=== PATIENT | male | born 1990 | race African-American/Black ===

== ENCOUNTER 2024-05-02 15:16 | Inpatient (IN) ==
[2024-05-02 17:32] LABS: Albumin Globulin Ratio 1.2 (0.9-2); Albumin Level 4.5 gm/dl (3.4-5.0); BUN Creatinine Ratio 10.7 (10-20); Bilirubin,Total 2.9 mg/dl (0.2-1.0); Calcium 9.7 mg/dl (8.6-10.3); Globulin 3.7 gm/dl (2.5-4.0); Potassium 3.9 mmol/L (3.5-5.1); Total Protein 8.2 gm/dl (6.0-8.3)
[2024-05-02 17:44] LABS: Basophils # (auto) 0.03 K/uL (0.00-0.20); Basophils % (auto) 0.2 %; Eosinophils # (auto) 0.07 K/uL (0.00-0.50); Eosinophils % (auto) 0.5 %; Hematocrit (blood only) 40.7 % (42.0-52.0); Hemoglobin 13.3 g/dl (14.0-18.0); Immature Granulocytes # (auto) 0.03 K/uL (0.01-0.20); Immature Granulocytes % (auto) 0.2 %; Lymphocytes # (auto) 2.52 K/uL (1.20-3.40); Lymphocytes % (auto) 17.7 %; Mean Corpuscular Hgb Conc 32.7 g/dL (32.0-36.0); Mean Corpuscular Volume 70.4 fL (80.0-100.0); Mean Platelet Volume 10.2 fL (9.4-12.4); Monocytes # (auto) 1.16 K/uL (0.11-0.59); Monocytes % (auto) 8.2 %; Neutrophils # (auto) 10.42 K/uL (1.40-6.50); Neutrophils % (auto) 73.2 %; Platelet Count 290 K/uL (130-400); RDW Coefficient of Variation 14.4 % (11.5-14.5); RDW Standard Deviation 35.5 fL (36.4-46.3); Red Blood Count 5.78 M/uL (4.70-6.10); White Blood Count 14.23 K/ul (4.8-10.8)
[2024-05-02] MEDS: SODIUM CHLORIDE 0.9% 1,000 ML IV ONE (19:17)
[2024-05-02] MEDS: MoRPHine SULFATE 4 MG/ML 1 ML CARP\\VIAL IV STA ×2 (19:17→20:09)
[2024-05-02] MEDS: ONDANSETRON INJ 2 MG/ML 2 ML VIAL IV STA (19:18)
--- NOTE | 2024-05-02 19:24 | Emergency Department Note ---
Impression & Plan Acute cholecystitis, Right sided abdominal pain ED Provider Note NAME: RADHA [id number] KIARA AGE: 33 SEX: M : 1990 ARRIVES VIA: Walk-In INFORMANT: Patient, ED PROVIDER(S): Tyrone Johnson DO CHIEF COMPLAINT: Abdominal pain HPI: The patient is a 33-year-old male who presented to the emergency department from the custodial for abdominal pain. I did see the patient yesterday for right side abdominal pain. He was sent from the custodial for the possibility of appendicitis. He did have lower abdominal tenderness on physical exam. CT did not show any acute process however his white blood cell count was elevated. He was told to come back to the emergency department if he develop worsening symptoms and today he started having vomiting as well as an elevated temperature. The patient denies having any chest pain or cough. He denies having any lower extremity swelling. ROS: See above HPI for pertinent positives & negatives. A total of 10 systems reviewed and were otherwise negative. PAST MEDICAL HISTORY: See Below PAST SURGICAL HISTORY: See Below FAMILY HISTORY: See Below SOCIAL HISTORY: See Below HOME MEDICATIONS: See Below ALLERGIES: See Below VITALS: See Below PHYSICAL EXAMINATION: GENERAL: Patient is awake alert in no acute distress patient is resting comfortably and showing no signs of anxiety EYES: The conjunctivae are clear. The pupils are round and reactive. EARS, NOSE, MOUTH AND THROAT: The nose is without any evidence of any deformity. Mucous membranes are moist. Tongue is midline. NECK: The neck is nontender and supple. RESPIRATORY: Normal respiratory effort is noted there is no evidence of wheezing rhonchi or rales CARDIOVASCULAR: Regular rate and rhythm noted there no murmurs rubs or gallops normal S1 normal S2. GASTROINTESTINAL: The abdomen is soft and mildly distended. There is right upper quadrant tenderness to palpation which is moderate. There is no guarding rigidity. MUSCULOSKELETAL/EXTREMITIES: There is no evidence of gross deformity full range of motion is noted in the hips and shoulders. SKIN: There is no obvious evidence of any rash. There are no petechiae, pallor or cyanosis noted. NEUROLOGIC: Patient is awake alert and oriented x3 MEDICAL DECISION MAKING: The patient is a 33 old male who presented to the emergency department for an evaluation of right sided abdominal pain. The patient was seen in our facility yesterday by myself. At that time the patient was felt to have an exam that could be consistent with appendicitis. CT did not show signs of appendicitis. His laboratory studies were not reflective of biliary pathology but he did have a slight elevation in his bilirubin. The patient developed fever today and was sent back to the emergency department for further evaluation. On my exam today he does appear to have more of a right upper quadrant abdominal pain rather than right lower abdominal pain. He was treated with IV fluids IV pain medication and IV antibiotics in the emergency department. He was reevaluated multiple times. On reevaluation he was somewhat improved. I discussed his condition with the on-call general surgical group. They recommended that I talk the case over with medicine as well. Triage Nursing notes reviewed. Prior medical records reviewed Vital Signs: reviewed and remarkable for no significant abnormalities Differential diagnosis: Etiologies such as appendicitis, diverticulitis, obstruction, inflammatory bowel disease, renal colic, PUD, biliary pathology, pancreatitis, mesenteric ischemia, aortic pathology, infections, genitourinary, UTI, perforated viscus, as well as others were entertained. ER treatment provided: See below Diagnostics interpreted by me: ECG: none Cardiac Monitoring: An order was placed for continuous cardiac monitoring. The monitor shows a rate of 85 bpm with sinus rhythm. Laboratory studies: As stated above and show below. Imaging studies: See below. Radiographic imaging was reviewed by myself Consultation(s): I discussed this case with Sam who is on for the surgical group. He recommends medical admission and they will follow along surgically. Dr. Miles was notified about the case. Past Med/Surg History Problem List (Updated 05/03/24 @ 01:17 by Tyrone Johnson DO) Acute cholecystitis (Acute) Right sided abdominal pain (Acute) Social History Smoking Status: Former smoker Feels Safe at Home: Yes Allergies Allergies Allergy/AdvReac Type Severity Reaction Status Date / Time No Known Allergies Allergy Unverified 05/01/24 21:15 Results & Data (ED) Vital Signs Vital Signs - 24 hr 05/02/24 15:47 05/02/24 19:00 05/02/24 19:01 Temperature 36.8 C Temperature Source Temporal Artery Scan Pulse Rate 111 H 111 H Pulse Rate [Finger] 111 H Pulse Rate from SpO2 Sensor Respiratory Rate 12 20 20 Respiratory Effort / Characteristics Non-Labored Non-Labored Spontaneous Respiratory Depth Normal Normal Respiratory Pattern Regular Blood Pressure 140/89 Blood Pressure [Left Arm] 125/90 Blood Pressure Mean 106 Blood Pressure Mean [Left Arm] 101 Pulse Oximetry 95 98 98 Oxygen Delivery Method Room Air Room Air Room Air Sepsis Recent Fever Within 48 Hours No Sepsis New/Unexplained Change in Mental Status N/A Sepsis Action Taken by Nursing No Action Required 05/02/24 19:10 05/02/24 19:15 05/02/24 19:21 Temperature Temperature Source Pulse Rate 100 H 103 H 106 H Pulse Rate [Finger] Pulse Rate from SpO2 Sensor 104 H 105 H Respiratory Rate 25 H 15 Respiratory Effort / Characteristics Respiratory Depth Respiratory Pattern Blood Pressure Blood Pressure [Left Arm] Blood Pressure Mean Blood Pressure Mean [Left Arm] Pulse Oximetry 96 97 Oxygen Delivery Method Sepsis Recent Fever Within 48 Hours Sepsis New/Unexplained Change in Mental Status Sepsis Action Taken by Nursing 05/02/24 19:30 05/02/24 19:30 05/02/24 19:30 Temperature Temperature Source Pulse Rate 98 H Pulse Rate [Finger] Pulse Rate from SpO2 Sensor 99 H Respiratory Rate 19 Respiratory Effort / Characteristics Respiratory Depth Respiratory Pattern Blood Pressure 126/93 126/93 Blood Pressure [Left Arm] Blood Pressure Mean 106 106 Blood Pressure Mean [Left Arm] Pulse Oximetry 96 Oxygen Delivery Method Sepsis Recent Fever Within 48 Hours Sepsis New/Unexplained Change in Mental Status Sepsis Action Taken by Nursing 05/02/24 19:42 05/02/24 20:30 05/02/24 20:33 Temperature Temperature Source Pulse Rate 82 85 Pulse Rate [Finger] Pulse Rate from SpO2 Sensor 82 82 Respiratory Rate 24 20 Respiratory Effort / Characteristics Respiratory Depth Respiratory Pattern Blood Pressure 161/105 H Blood Pressure [Left Arm] Blood Pressure Mean 124 Blood Pressure Mean [Left Arm] Pulse Oximetry 97 97 Oxygen Delivery Method Sepsis Recent Fever Within 48 Hours Sepsis New/Unexplained Change in Mental Status Sepsis Action Taken by Nursing 05/02/24 20:57 05/02/24 21:00 05/02/24 21:01 Temperature Temperature Source Pulse Rate 81 Pulse Rate [Finger] 77 Pulse Rate from SpO2 Sensor 81 Respiratory Rate 27 H 20 Respiratory Effort / Characteristics Respiratory Depth Respiratory Pattern Blood Pressure 158/111 H Blood Pressure [Left Arm] 154/109 H Blood Pressure Mean 128 Blood Pressure Mean [Left Arm] 124 Pulse Oximetry 97 96 Oxygen Delivery Method Sepsis Recent Fever Within 48 Hours Sepsis New/Unexplained Change in Mental Status Sepsis Action Taken by Nursing 05/02/24 21:03 05/02/24 21:27 05/02/24 21:31 Temperature Temperature Source Pulse Rate 80 75 Pulse Rate [Finger] Pulse Rate from SpO2 Sensor 81 76 Respiratory Rate 21 22 Respiratory Effort / Characteristics Respiratory Depth Respiratory Pattern Blood Pressure 154/109 H Blood Pressure [Left Arm] Blood Pressure Mean 117 Blood Pressure Mean [Left Arm] Pulse Oximetry 97 97 Oxygen Delivery Method Sepsis Recent Fever Within 48 Hours Sepsis New/Unexplained Change in Mental Status Sepsis Action Taken by Nursing 05/02/24 21:39 05/02/24 22:00 05/02/24 22:01 Temperature Temperature Source Pulse Rate 92 H 82 Pulse Rate [Finger] Pulse Rate from SpO2 Sensor 91 H 81 Respiratory Rate 21 15 Respiratory Effort / Characteristics Respiratory Depth Respiratory Pattern Blood Pressure 145/104 H Blood Pressure [Left Arm] Blood Pressure Mean 112 Blood Pressure Mean [Left Arm] Pulse Oximetry 95 96 Oxygen Delivery Method Sepsis Recent Fever Within 48 Hours Sepsis New/Unexplained Change in Mental Status Sepsis Action Taken by Nursing 05/02/24 22:15 05/02/24 22:21 05/02/24 22:30 Temperature Temperature Source Pulse Rate 92 H 92 H 87 Pulse Rate [Finger] Pulse Rate from SpO2 Sensor 90 91 H 86 Respiratory Rate 23 24 23 Respiratory Effort / Characteristics Respiratory Depth Respiratory Pattern Blood Pressure Blood Pressure [Left Arm] Blood Pressure Mean Blood Pressure Mean [Left Arm] Pulse Oximetry 96 95 96 Oxygen Delivery Method Sepsis Recent Fever Within 48 Hours Sepsis New/Unexplained Change in Mental Status Sepsis Action Taken by Nursing 05/02/24 22:30 05/02/24 22:51 05/02/24 23:00 Temperature Temperature Source Pulse Rate 81 Pulse Rate [Finger] Pulse Rate from SpO2 Sensor 82 Respiratory Rate 23 Respiratory Effort / Characteristics Respiratory Depth Respiratory Pattern Blood Pressure 156/106 H 170/86 H Blood Pressure [Left Arm] Blood Pressure Mean 133 114 Blood Pressure Mean [Left Arm] Pulse Oximetry 96 Oxygen Delivery Method Sepsis Recent Fever Within 48 Hours Sepsis New/Unexplained Change in Mental Status Sepsis Action Taken by Nursing 05/02/24 23:10 05/02/24 23:42 Temperature Temperature Source Pulse Rate 82 Pulse Rate [Finger] 81 Pulse Rate from SpO2 Sensor Respiratory Rate 20 Respiratory Effort / Characteristics Non-Labored Spontaneous Respiratory Depth Normal Respiratory Pattern Regular Blood Pressure Blood Pressure [Left Arm] 158/84 H Blood Pressure Mean Blood Pressure Mean [Left Arm] 108 Pulse Oximetry 96 Oxygen Delivery Method Room Air Sepsis Recent Fever Within 48 Hours Sepsis New/Unexplained Change in Mental Status Sepsis Action Taken by [facility] Medications Current Medication List: was personally reviewed by me Laboratory Data Attestation: I reviewed the patient's lab results. 05/02/24 16:55 05/02/24 16:55 Lab Results 05/02/24 05/02/24 05/02/24 Range/Units 00:18 16:55 18:37 WBC 14.23 H (4.8-10.8) K/ul RBC 5.78 (4.70-6.10) M/uL Hgb 13.3 L (14.0-18.0) g/dl Hct 40.7 L (42.0-52.0) % MCV 70.4 L (80.0-100.0) fL MCH 23.0 L (25.0-34.0) pg MCHC 32.7 (32.0-36.0) g/dL RDW Std Deviation 35.5 L (36.4-46.3) fL RDW Coeff of Lita 14.4 (11.5-14.5) % Plt Count 290 (130-400) K/uL MPV 10.2 (9.4-12.4) fL Immature Gran % (Auto) 0.2 % Neut % (Auto) 73.2 % Lymph % (Auto) 17.7 % [place] % (Auto) 8.2 % Eos % (Auto) 0.5 % Baso % (Auto) 0.2 % Neut # (Auto) 10.42 H (1.40-6.50) K/uL Lymph # (Auto) 2.52 (1.20-3.40) K/uL [place] # (Auto) 1.16 H (0.11-0.59) K/uL Eos # (Auto) 0.07 (0.00-0.50) K/uL Baso # (Auto) 0.03 (0.00-0.20) K/uL Immature Gran # (Auto) 0.03 (0.01-0.20) K/uL Sodium 137 (136-145) mmol/L Potassium 3.9 (3.5-5.1) mmol/L Chloride 102 (98-107) mmol/L Carbon Dioxide 26 (21-32) mmol/L Anion Gap 9 (3-11) BUN 12 (6-23) mg/dl Creatinine 1.12 (0.6-1.4) mg/dl Est Cr Clr Drug Dosing 141.0 ml/min eGFR 88.41 BUN/Creatinine Ratio 10.7 (10-20) Glucose 94 (70-99(Fasting)) mg/dl Calcium 9.7 (8.6-10.3) mg/dl Total Bilirubin 2.9 H D (0.2-1.0) mg/dl Direct Bilirubin 0.5 H (0-0.2) mg/dl AST 24 (13-39) U/L ALT 35 (7-52) U/L Alkaline Phosphatase 78 (34-104) U/L Total Protein 8.2 (6.0-8.3) gm/dl Albumin 4.5 (3.4-5.0) gm/dl Globulin 3.7 (2.5-4.0) gm/dl Albumin/Globulin Ratio 1.2 (0.9-2) Lipase 11 (11-82) U/L Urine Color [place] Urine Appearance Clear (Clear) Urine pH 6.0 (4.5-7.5) Ur Specific [place] 1.037 H (1.000-1.030) Urine Protein 1+ H (Negative) Urine Glucose (UA) Negative (Negative) Urine Ketones 1+ H (Negative) Urine Blood Negative (Negative) Urine Nitrite Positive A (Negative) Urine Bilirubin 2+ H (Negative) Urine Urobilinogen Positive H (Negative) Ur Leukocyte Esterase Trace H (Negative) Urine WBC (Auto) 0-5 (0-5) /hpf Urine RBC (Auto) 6-10 H (0-2) /hpf U Hyaline Cast (Auto) 0-2 (0-2) /lpf U Epithel Cells (Auto) 0-2 (0-2) /hpf Urine Bacteria (Auto) 2+ H (None Seen) Urine Mucus Present A (None Prsent) Hep Bs Antigen Negative (Negative) Administered Medications Lactated Ringer's (Lr) 1,000 mls @ 80 mls/hr IV .[id number] BRAD Stop: 05/03/24 12:14 Last Admin: 05/03/24 00:14 Dose: 80 mls/hr Documented By: EMB Morphine Sulfate (Morphine Sulfate 4 Mg/Ml 1 Ml Carp\Vial) 4 mg IV Q3H PRN PRN Reason: Severe Pain (Scale 7, 8, 9,10) Stop: 05/17/24 00:02 Last Admin: 05/03/24 00:55 Dose: 4 mg Documented By: LORETTA Ondansetron HCl (Ondansetron Inj 2 Mg/Ml 2 Ml Vial) 4 mg IV Q6H PRN PRN Reason: Nausea Stop: 06/02/24 00:02 Last Admin: 05/03/24 00:53 Dose: 4 mg Documented By: LORETTA Discontinued Medications Sodium Chloride (Nss) 1,000 mls @ 999 mls/hr IV .[id number] ONE Stop: 05/02/24 20:12 Last Infusion: 05/02/24 20:12 Dose: Infused Documented By: Admin: 05/02/24 19:17 Dose: 999 mls/hr Documented By: DORITA Piperacillin Sod/Tazobactam Sod (Zosyn) 4.5 gm in 100 mls @ 200 mls/hr IV NOW ONE; Protocol Stop: 05/02/24 19:50 Last Infusion: 05/02/24 20:12 Dose: Infused Documented By: Admin: 05/02/24 19:41 Dose: 200 mls/hr Documented By: DORITA Morphine Sulfate (Morphine Sulfate 4 Mg/Ml 1 Ml Carp\Vial) 4 mg IV NOW STA Stop: 05/02/24 19:13 Last Admin: 05/02/24 19:17 Dose: 4 mg Documented By: DORITA Morphine Sulfate (Morphine Sulfate 4 Mg/Ml 1 Ml Carp\Vial) 4 mg IV NOW STA Stop: 05/02/24 20:04 Last Admin: 05/02/24 20:09 Dose: 4 mg [place] [facility] [facility] [place]danset[place] HCl (Ondansetron Inj 2 Mg/Ml 2 Ml Vial) 4 mg IV NOW STA Stop: 05/02/24 19:13 Last Admin: 05/02/24 19:18 Dose: 4 mg Documented By: DORITA Imaging Data Attestation: I personally reviewed and interpreted this imaging study as follows: My Impression: Chest x-ray was obtained in the emergency department. My interpretation is no free air or definite infiltrate, final report below. Radiologist's Impression: Chest X-Ray 05/02/24 19:12 Exam(s): XR CXR 1 VIEW EXAM: XR Chest, 1 View CLINICAL HISTORY: Reason for exam: fever. TECHNIQUE: Frontal view of the chest. COMPARISON: No relevant prior studies available. FINDINGS: Lungs: Soft tissue artifact over the lung bases from large body habitus. No acute infiltrate or consolidation is seen. Pleural space: Unremarkable. No pneumothorax. Heart: Unremarkable. No cardiomegaly. Mediastinum: Unremarkable. Normal mediastinal contour. Bones/joints: Unremarkable. No acute fracture. Upper abdomen: There is no pneumoperitoneum under the diaphragm. IMPRESSION: No acute findings in the chest. Electronically signed by: Fly Pablo MD 05/02/24 21:21 PM Gallbladder Ultrasound 05/02/24 19:12 Exam(s): US GALLBLADDER EXAM: US Abdomen Limited, Gallbladder CLINICAL HISTORY: Reason for exam: Right upper quadrant pain. TECHNIQUE: Real-time ultrasound of the right upper quadrant with image documentation. COMPARISON: CT scan from May 01, 2024 FINDINGS: Liver: The liver measures 16.2 cm with possible mild fatty infiltration. No focal liver lesion is seen. Gallbladder: The gallbladder is mildly enlarged measuring 10.7 cm long axis. No gallstones are identified. There is mild wall thickening measuring 3.4 mm. No surrounding fluid. Common bile duct: The common bile duct is nondilated measuring 5 mm. Pancreas: The pancreas is most obscured by bowel gas. Right kidney: Unremarkable. No stones. No hydronephrosis. The right kidney measures 11.1 cm. IMPRESSION: The gallbladder is mildly enlarged measuring 10.7 cm long axis. No gallstones are identified. There is mild wall thickening measuring 3.4 mm. No surrounding fluid. Sonographic [place] sign is positive. Electronically signed by: Fly Pablo MD 05/02/24 22:53 PM Discharge Plan Visit Data Chief Complaint: Hematuria Stated Complaint: HEMATURIA, DIARRHEA ED Provider: Tyrone Johnson Discharge Problem: Acute cholecystitis, Right sided abdominal pain Patient Disposition: Being Evaluated by Hospitalist Condition: Good Discharge Instructions Interventions: ED Discharge Assessment Last Done: 05/03/24 00:03
[2024-05-02 19:27] LABS: Appearance Urine Clear (Clear); Bilirubin Urine 2+ (Negative); Blood Urine Negative (Negative); Color Urine Orange; Epithelial Cell Urine Auto 0-2 /hpf (0-2); Glucose Urine UA Negative (Negative); Ketones Urine 1+ (Negative); Leukocyte Esterase Urine Trace (Negative); Nitrite Urine Positive (Negative); Protein Urine 1+ (Negative); Specific Gravity Urine 1.037 (1.000-1.030); Urobilinogen Urine Positive (Negative); WBC Urine Automated 0-5 /hpf (0-5)
[2024-05-02] MEDS: PIPERACILLIN/TAZOBACTAM 4.5 GM/100 ML BAG IV ONE (19:41)
[2024-05-02 19:47] LABS: Bacteria Urine Automated 2+ (None Seen); Mucus Urine Present (None Prsent)
[2024-05-02 19:49] LABS: Cast Urine Automated 0-2 /lpf (0-2)
--- NOTE | 2024-05-02 21:22 | XRay Report ---
Exam(s): XR CXR 1 VIEW EXAM: XR Chest, 1 View CLINICAL HISTORY: Reason for exam: fever. TECHNIQUE: Frontal view of the chest. COMPARISON: No relevant prior studies available. FINDINGS: Lungs: Soft tissue artifact over the lung bases from large body habitus. No acute infiltrate or consolidation is seen. Pleural space: Unremarkable. No pneumothorax. Heart: Unremarkable. No cardiomegaly. Mediastinum: Unremarkable. Normal mediastinal contour. Bones/joints: Unremarkable. No acute fracture. Upper abdomen: There is no pneumoperitoneum under the diaphragm. IMPRESSION: No acute findings in the chest. Electronically signed by: Fly Pablo MD 05/02/24 21:21 PM
--- NOTE | 2024-05-02 22:54 | Ultrasound Report ---
Exam(s): US GALLBLADDER EXAM: US Abdomen Limited, Gallbladder CLINICAL HISTORY: Reason for exam: Right upper quadrant pain. TECHNIQUE: Real-time ultrasound of the right upper quadrant with image documentation. COMPARISON: CT scan from May 01, 2024 FINDINGS: Liver: The liver measures 16.2 cm with possible mild fatty infiltration. No focal liver lesion is seen. Gallbladder: The gallbladder is mildly enlarged measuring 10.7 cm long axis. No gallstones are identified. There is mild wall thickening measuring 3.4 mm. No surrounding fluid. Common bile duct: The common bile duct is nondilated measuring 5 mm. Pancreas: The pancreas is most obscured by bowel gas. Right kidney: Unremarkable. No stones. No hydronephrosis. The right kidney measures 11.1 cm. IMPRESSION: The gallbladder is mildly enlarged measuring 10.7 cm long axis. No gallstones are identified. There is mild wall thickening measuring 3.4 mm. No surrounding fluid. Sonographic [place] sign is positive. Electronically signed by: Fly Pablo MD 05/02/24 22:53 PM
--- NOTE | 2024-05-02 23:41 | Surgery Consultation ---
Date of Consultation May 02, 2024 Assessment & Plan (1) Right sided abdominal pain: I discussed with the treating emergency room physician the patient is being admitted on the hospitalist service. From surgery perspective we recommend the following: The patient does not have definite evidence of cholecystitis Due to the patient's rising bilirubin I have ordered an direct bilirubin for further evaluation of this abnormality I ordered repeat LFTs for the morning. If patient's LFTs continue to rise would recommend obtaining either an MRCP for further evaluation of patient's hepatobiliary system or obtaining a GI consultation. If patient's LFTs are normalizing tomorrow and there is still concern that the patient has cholecystitis we can consider getting a HIDA scan for further evaluation of this I did discuss with the medical service and they are planning on obtaining a hepatitis profile for further evaluation of patient's LFTs Does appears that the patient has a urinary tract infection and he has been placed on Zosyn which will cover possible cholecystitis as well as urinary tract infection. He does have a urine culture that has been sent and is pending and this should be followed for and antibiotics can be tailored accordingly Patient has not had coagulation studies sent and I have ordered these to be performed with his a.m. labs Would recommend providing analgesics and antiemetics Would recommend implementing n.p.o. status until is ascertained whether or not the patient will require any procedural intervention tomorrow Would recommend utilizing only SCDs for DVT prevention until it is ascertained whether or not the patient require any procedural intervention Additional recommendations be forthcoming based on his clinical course as unfolds History of Present Illness Reason for Consultation: Abdominal pain History of Present Illness This is a 33-year-old male who presented to the emergency department secondary to abdominal pain. Patient was seen in the emergency department at [facility] yesterday on 05/01/24. On this date the patient underwent a CT scan of his abdomen pelvis that showed no acute intra-abdominal processes. Patient did undergo labs on this day where CBC revealed white blood cell count was elevated 13.6. Hemoglobin and hematocrit were 12.7 and 38.7 and his platelet count was normal. Chemistry profile showed sodium and potassium as well as the BUN and creatinine were normal. He did have an elevated total bilirubin of 1.9 but the remainder of his LFTs as well as his lipase were not elevated. Urinalysis was not indicative of infection. Patient was discharged back to the correctional facility where the patient resides. Patient return to the emergency department today due to continued abdominal pain. He notes that the pain is primary located in the right upper quadrant without any radiation. He has had nausea and vomiting and he also reports fevers at the correctional facility. In addition the patient reports some intermittent hematuria. He denies any dysuria or weakened urinary stream. He does note that he has never had any abdominal surgery. He does not take any medications but he says he does suffer from thalassemia. Patient has multiple tattoos and notes that some of his tattoos were not done at reputable tattoo facilities. He has been incarcerated for several years and therefore has had no recent travel. To the best of his knowledge there is been no foodborne illnesses circulating throughout his correctional facility. Today in the emergency department the patient had labs and imaging which I independent reviewed. A chest x-ray showed no evidence of pneumonia. A gallbladder ultrasound showed that his gallbladder was mildly enlarged however there were no gallstones. There is some mild gallbladder wall thickening measuring 3.4 mm. There is no pericholecystic fluid. Labs included CBC her white blood cell count remains elevated at 14.2. Hemoglobin and hematocrit are 13.3 and 40.7. Platelet count is normal. Chemistry profile showed sodium and potassium as well as the BUN and creatinine are normal. His total bilirubin remains elevated at 2.9. The remainder of his LFTs and lipase are not elevated. Urinalysis today appears to be positive for infectious process as there are positive nitrites as well as trace leukocyte Estrace on this specimen. There is no pyuria but the patient did have bacteria. At the time of my interview he was resting comfortably in bed and is in no distress. Concerning past medical history patient says he suffers from thalassemia Concerning past surgical history he has no prior surgeries Concerning family history he notes his mother has thalassemia Concerning social history he is a former smoker. He has no history of alcohol abuse Allergies Allergy/AdvReac Type Severity Reaction Status Date / Time No Known Allergies Allergy Unverified 05/01/24 21:15 Home Medications Medication Instructions Recorded Confirmed Type No Known Home Medications 05/03/24 05/03/24 History Patient History Medical History (Updated 05/03/24 @ 02:51 by Hesham Jay MD) Beta thalassemia Morbid obesity with BMI of 40.0-44.9, adult Social History Smoking Status: Current every day smoker Tobacco Type: Cigarettes Second Hand Exposure: No; Do You Dip or Chew Tobacco: No; Hx Alcohol Use: No Hx Substance Use: No Preferred Language: Japanese Communication Ability: Effective Senior Data Architect Required: No Beliefs That Will Affect Care: None Current Living Situation: Other Feels Safe at Home: Yes Review of Systems Review of Systems: All systems reviewed & are unremarkable except as noted in HPI & below Physical Exam Constitutional: WD/WN, vitals as above Eyes: + anicteric sclerae ENMT: Ears: no hearing impairment and no external ear abnormality Sublingual jaundice is noted Neck: trachea midline Respiratory: normal respiratory effort; no respiratory distress and no labored breathing Cardiovascular: Rate/Rhythm: regular rate and regular rhythm Gastrointestinal (Abdomen): Abdomen is rotund and soft. It is nonrigid. There is no rebound tenderness or guarding. Patient did have slight tenderness with palpation in the right upper quadrant Musculoskeletal: No calf tenderness Skin: no jaundice Multiple tattoos noted on patient's extremities Neurologic: moves all extremities Psychiatric: A+Ox3, euthymic affect Genitourinary: No CVA tenderness with percussion bilaterally Results & Data Vital Signs (Past 12 Hours) Vital Signs Temp Pulse Pulse Resp BP BP Pulse Ox 05/02/24 23:10 82 05/02/24 23:00 170/86 H 05/02/24 22:51 81 23 96 05/02/24 22:30 156/106 H 05/02/24 22:30 87 23 96 05/02/24 22:21 92 H 24 95 05/02/24 22:15 92 H 23 96 05/02/24 22:01 145/104 H 05/02/24 22:00 82 15 96 05/02/24 21:39 92 H 21 95 05/02/24 21:31 154/109 H 05/02/24 21:27 75 22 97 05/02/24 21:03 80 21 97 05/02/24 21:01 158/111 H 05/02/24 21:00 77 20 154/109 H 96 05/02/24 20:57 81 27 H 97 05/02/24 20:33 85 20 97 05/02/24 20:30 161/105 H 05/02/24 19:42 82 24 97 12/03/24 19:30 98 H 19 96 05/02/24 19:30 126/93 05/02/24 19:30 126/93 05/02/24 19:21 106 H 15 97 05/02/24 19:15 103 H 25 H 96 05/02/24 19:10 100 H 05/02/24 19:01 111 H 20 98 05/02/24 19:00 111 H 20 125/90 98 05/02/24 15:47 36.8 C 111 H 12 140/89 95 O2 Del Method 05/02/24 23:10 05/02/24 23:00 05/02/24 22:51 05/02/24 22:30 05/02/24 22:30 05/02/24 22:21 05/02/24 22:15 05/02/24 22:01 05/02/24 22:00 05/02/24 21:39 05/02/24 21:31 05/02/24 21:27 05/02/24 21:03 05/02/24 21:01 05/02/24 21:00 05/02/24 20:57 05/02/24 20:33 05/02/24 20:30 05/02/24 19:42 05/02/24 19:30 05/02/24 19:30 05/02/24 19:30 05/02/24 19:21 05/02/24 19:15 05/02/24 19:10 05/02/24 19:01 Room Air 05/02/24 19:00 Room Air 05/02/24 15:47 Room Air PG Care Time/CCT Total # of Minutes Spent Total Time Spent with Patient: Total time spent is greater than 50% in coordination of care (as documented) at patient's floor/unit and/or counseling patient: Coding Level of Care Code 16958 IN/OBS CONSULT LVL 5,80M Diagnoses Right sided abdominal pain R10.9
[2024-05-02 23:47] LABS: Bilirubin Direct 0.5 mg/dl (0-0.2)
--- NOTE | 2024-05-02 23:49 | History & Physical Report ---
Date of Service May 02, 2024 Assessment & Plan (1) Right sided abdominal pain: (2) Nausea and vomiting: (3) Acute cholecystitis: (4) Urinary tract infection: (5) Hyperbilirubinemia: (6) Beta thalassemia: Plan Nausea and vomiting/right sided abdominal pain- Patient reports to the emergency department for the second day in a row, with initially having abdominal pain, and now the second day accompanied by nausea and vomiting. He reportedly had blood in his urine yesterday, but less today. Differential including but not limited to: acute cholecystitis, urinary tract infection/prostatitis with systemic symptoms Acute cholecystitis- Ultrasound with results as noted above with gallbladder mildly enlarged and mild wall thickening NPO Zosyn 4.5 g IV every 8 hours Zofran 4 mg IV every 6 hours as needed Morphine sulfate 2 mg IV every 3 hours as needed for moderate pain Morphine sulfate 4 mg IV every 3 hours as needed for severe pain Pantoprazole 40 mg IV daily Consult general surgery Urinary tract infection- Follow urine culture and sensitivity Zosyn 4.5 g IV every 8 hours as noted above LR at 80 mL/h x 1 L Hyperbilirubinemia- Total bilirubin is increased from 1.9-2.9 from yesterday to today Question secondary to Gilbert's, hemolysis, hepatitis Peripheral smear with history of beta thalassemia to assess for possible hemolysis Acute hepatitis profile History of Present Illness Chief Complaint: The patient initially presented to the emergency department on 05/01 with complaint of abdominal pain, and had a CT scan of abdomen pelvis which was negative and normal laboratories except for total bilirubin of 1.9. The patient returned to the alf, and today developed nausea and vomiting. He presents to the emergency department with nausea and vomiting symptoms, in addition to abdominal pain, and ultrasound at this point suggest acute cholecystitis, urinalysis was suggestive of urinary tract infection correlated with his history of hematuria yesterday, and increasing bili bilirubin up to 2.9. Primary Care Provider: GINO El The patient is a 33-year-old male resident of [facility], with past medical h istory significant for beta thalassemia, who presents to the emergency department with symptoms as noted above. He is referred for evaluation for admission regarding acute cholecystitis, urinary tract infection, hyperbilirubinemia and symptoms of nausea, vomiting and abdominal pain. Allergies Allergy/AdvReac Type Severity Reaction Status Date / Time No Known Allergies Allergy Unverified 05/01/24 21:15 Home Medications Medication Instructions Recorded Confirmed Type No Known Home Medications 05/03/24 05/03/24 History Past Med/Surg History Problem List (Updated 05/03/24 @ 02:51 by Hesham Jay MD) Nausea and vomiting Hyperbilirubinemia Urinary tract infection Acute cholecystitis (Acute) Right sided abdominal pain (Acute) Medical History (Updated 05/03/24 @ 02:51 by Hesham Jay MD) Beta thalassemia Morbid obesity with BMI of 40.0-44.9, adult Social History Smoking Status: Former smoker Feels Safe at Home: Yes Review of Systems Review of Systems: The patient denies chest pain, palpitations, shortness of breath, dyspnea on exertion, cough, lower extremity swelling, sore throat, fevers, chills, sweats, blood in stool, dysuria, urinary frequency or urgency, lightheadedness, dizziness, headache, memory loss, loss of consciousness, rash, imbalance, focal weakness, numbness or tingling in arms or legs, generalized arthralgias or myalgias, back or neck pain, or night sweats. The review of systems is otherwise negative other than for that already noted above, and at least 10 systems have been reviewed. Physical Exam Physical Exam: The patient is awake, alert and oriented 3, well developed and well nourished, normocephalic and atraumatic, lying in bed and in no acute distress. HEENT--PERRL, EOMI, mucous membranes and oropharynx mildly dry. Neck--supple. No JVD. No bruits. Thyroid normal, trachea midline, no adenopathy. Heart--normal S1 and S2. No murmurs, rubs or gallops. Lungs--clear bilaterally, no respiratory distress, no accessory muscle use. Abdomen--normal bowel sounds and soft. Nontender. Nondistended. Morbidly obese Extremities--no cyanosis or clubbing. No edema. Dermatologic--normal skin turgor, normal color, no abnormal lymph nodes, no rash. Neurologic--cranial nerves II through XII grossly intact. Rheumatologic--normal range of motion. Psychiatric--normal affect. Results & Data Results & Data Vital Signs (Past 12 Hours) Vital Signs Temp Pulse Pulse Resp BP BP Pulse Ox 05/02/24 23:42 81 20 158/84 H 96 05/02/24 23:10 82 05/02/24 23:00 170/86 H 05/02/24 22:51 81 23 96 05/02/24 22:30 156/106 H 05/02/24 22:30 87 23 96 05/02/24 22:21 92 H 24 95 05/02/24 22:15 92 H 23 96 05/02/24 22:01 145/104 H 05/02/24 22:00 82 15 96 05/02/24 21:39 92 H 21 95 05/02/24 21:31 154/109 H 05/02/24 21:27 75 22 97 05/02/24 21:03 80 21 97 05/02/24 21:01 158/111 H 05/02/24 21:00 77 20 154/109 H 96 05/02/24 20:57 81 27 H 97 05/02/24 20:33 85 20 97 05/02/24 20:30 161/105 H 05/02/24 19:42 82 24 97 05/02/24 19:30 98 H 19 96 05/02/24 19:30 126/93 05/02/24 19:30 126/93 05/02/24 19:21 106 H 15 97 05/02/24 19:15 103 H 25 H 96 05/02/24 19:10 100 H 05/02/24 19:01 111 H 20 98 05/02/24 19:00 111 H 20 125/90 98 05/02/24 15:47 36.8 C 111 H 12 140/89 95 O2 Del Method 05/02/24 23:42 Room Air 05/02/24 23:10 05/02/24 23:00 05/02/24 22:51 05/02/24 22:30 05/02/24 22:30 05/02/24 22:21 05/02/24 22:15 05/02/24 22:01 05/02/24 22:00 05/02/24 21:39 05/02/24 21:31 05/02/24 21:27 05/02/24 21:03 05/02/24 21:01 05/02/24 21:00 05/02/24 20:57 05/02/24 20:33 05/02/24 20:30 05/02/24 19:42 05/02/24 19:30 05/02/24 19:30 05/02/24 19:30 05/02/24 19:21 05/02/24 19:15 05/02/24 19:10 05/02/24 19:01 Room Air 05/02/24 19:00 Room Air 05/02/24 15:47 Room Air Laboratory Results Laboratory Results WBC 14.23 K/ul (4.8-10.8) H 05/02/24 16:55 RBC 5.78 M/uL (4.70-6.10) 05/02/24 16:55 Hgb 13.3 g/dl (14.0-18.0) L 05/02/24 16:55 Hct 40.7 % (42.0-52.0) L 05/02/24 16:55 MCV 70.4 fL (80.0-100.0) L 05/02/24 16:55 MCH 23.0 pg (25.0-34.0) L 05/02/24 16:55 MCHC 32.7 g/dL (32.0-36.0) 05/02/24 16:55 RDW Std Deviation 35.5 fL (36.4-46.3) L 05/02/24 16:55 RDW Coeff of Lita 14.4 % (11.5-14.5) 05/02/24 16:55 Plt Count 290 K/uL (130-400) 05/02/24 16:55 MPV 10.2 fL (9.4-12.4) 05/02/24 16:55 Immature Gran % (Auto) 0.2 % 05/02/24 16:55 Neut % (Auto) 73.2 % 05/02/24 16:55 Lymph % (Auto) 17.7 % 05/02/24 16:55 Ness % (Auto) 8.2 % 05/02/24 16:55 Eos % (Auto) 0.5 % 05/02/24 16:55 Baso % (Auto) 0.2 % 05/02/24 16:55 Neut # (Auto) 10.42 K/uL (1.40-6.50) H 05/02/24 16:55 Lymph # (Auto) 2.52 K/uL (1.20-3.40) 05/02/24 16:55 Ness # (Auto) 1.16 K/uL (0.11-0.59) H 05/02/24 16:55 Eos # (Auto) 0.07 K/uL (0.00-0.50) 05/02/24 16:55 Baso # (Auto) 0.03 K/uL (0.00-0.20) 05/02/24 16:55 Immature Gran # (Auto) 0.03 K/uL (0.01-0.20) 05/02/24 16:55 Sodium 137 mmol/L (136-145) 05/02/24 16:55 Potassium 3.9 mmol/L (3.5-5.1) 05/02/24 16:55 Chloride 102 mmol/L (98-107) 05/02/24 16:55 Carbon Dioxide 26 mmol/L (21-32) 05/02/24 16:55 Anion Gap 9 (3-11) 05/02/24 16:55 BUN 12 mg/dl (6-23) 05/02/24 16:55 Creatinine 1.12 mg/dl (0.6-1.4) 05/02/24 16:55 Est Cr Clr Drug Dosing 141.0 ml/min 05/02/24 16:55 eGFR 88.41 05/02/24 16:55 BUN/Creatinine Ratio 10.7 (10-20) 05/02/24 16:55 Glucose 94 mg/dl (70-99(Fasting)) 05/02/24 16:55 Calcium 9.7 mg/dl (8.6-10.3) 05/02/24 16:55 Total Bilirubin 2.9 mg/dl (0.2-1.0) H D 05/02/24 16:55 Direct Bilirubin 0.5 mg/dl (0-0.2) H 05/02/24 16:55 AST 24 U/L (13-39) 05/02/24 16:55 ALT 35 U/L (7-52) 05/02/24 16:55 Alkaline Phosphatase 78 U/L (34-104) 05/02/24 16:55 Total Protein 8.2 gm/dl (6.0-8.3) 05/02/24 16:55 Albumin 4.5 gm/dl (3.4-5.0) 05/02/24 16:55 Globulin 3.7 gm/dl (2.5-4.0) 05/02/24 16:55 Albumin/Globulin Ratio 1.2 (0.9-2) 05/02/24 16:55 Lipase 11 U/L (11-82) 05/02/24 16:55 Urine Color [place] 05/02/24 18:37 Urine Appearance Clear (Clear) 05/02/24 18:37 Urine pH 6.0 (4.5-7.5) 05/02/24 18:37 Ur Specific [place] 1.037 (1.000-1.030) H 05/02/24 18:37 Urine Protein 1+ (Negative) H 05/02/24 18:37 Urine Glucose (UA) Negative (Negative) 05/02/24 18:37 Urine Ketones 1+ (Negative) H 05/02/24 18:37 Urine Blood Negative (Negative) 05/02/24 18:37 Urine Nitrite Positive (Negative) A 05/02/24 18:37 Urine Bilirubin 2+ (Negative) H 05/02/24 18:37 Urine Urobilinogen Positive (Negative) H 05/02/24 18:37 Ur Leukocyte Esterase Trace (Negative) H 05/02/24 18:37 Urine WBC (Auto) 0-5 /hpf (0-5) 05/02/24 18:37 Urine RBC (Auto) 6-10 /hpf (0-2) H 05/02/24 18:37 U Hyaline Cast (Auto) 0-2 /lpf (0-2) 05/02/24 18:37 U Epithel Cells (Auto) 0-2 /hpf (0-2) 05/02/24 18:37 Urine Bacteria (Auto) 2+ (None Seen) H 05/02/24 18:37 Urine Mucus Present (None Prsent) A 05/02/24 18:37 Hep Bs Antigen Negative (Negative) 05/02/24 00:18 Hepatitis C Antibody Negative (Negative) 05/02/24 00:18 Impressions Chest X-Ray 05/02/24 19:12 Exam(s): XR CXR 1 VIEW EXAM: XR Chest, 1 View CLINICAL HISTORY: Reason for exam: fever. TECHNIQUE: Frontal view of the chest. COMPARISON: No relevant prior studies available. FINDINGS: Lungs: Soft tissue artifact over the lung bases from large body habitus. No acute infiltrate or consolidation is seen. Pleural space: Unremarkable. No pneumothorax. Heart: Unremarkable. No cardiomegaly. Mediastinum: Unremarkable. Normal mediastinal contour. Bones/joints: Unremarkable. No acute fracture. Upper abdomen: There is no pneumoperitoneum under the diaphragm. IMPRESSION: No acute findings in the chest. Electronically signed by: Fly Pablo MD 05/02/24 21:21 PM Gallbladder Ultrasound 05/02/24 19:12 Exam(s): US GALLBLADDER EXAM: US Abdomen Limited, Gallbladder CLINICAL HISTORY: Reason for exam: Right upper quadrant pain. TECHNIQUE: Real-time ultrasound of the right upper quadrant with image documentation. COMPARISON: CT scan from May 01, 2024 FINDINGS: Liver: The liver measures 16.2 cm with possible mild fatty infiltration. No focal liver lesion is seen. Gallbladder: The gallbladder is mildly enlarged measuring 10.7 cm long axis. No gallstones are identified. There is mild wall thickening measuring 3.4 mm. No surrounding fluid. Common bile duct: The common bile duct is nondilated measuring 5 mm. Pancreas: The pancreas is most obscured by bowel gas. Right kidney: Unremarkable. No stones. No hydronephrosis. The right kidney measures 11.1 cm. IMPRESSION: The gallbladder is mildly enlarged measuring 10.7 cm long axis. No gallstones are identified. There is mild wall thickening measuring 3.4 mm. No surrounding fluid. Sonographic [place] sign is positive. Electronically signed by: Fly Pablo MD 05/02/24 22:53 PM Code Status & VTE Plan Code Status Full code VTE Prophylaxis Plan VTE Prophylaxis will be ordered: Yes PG Care Time/CCT Total # of Minutes Spent Total Time Spent with Patient: Total time spent is greater than 50% in coordination of care (as documented) at patient's floor/unit and/or counseling patient: Coding Level of Care Code 45067 INT INP/OBS CARE 3/75MIN Diagnoses Right sided abdominal pain R10.9 Nausea and vomiting R11.2 Acute cholecystitis K81.0 Urinary tract infection N39.0 Hyperbilirubinemia E80.6 Beta thalassemia D56.1
[2024-05-03] MEDS ORDERED: MoRPHine SULFATE 2 MG/ML CARP IV PRN (00:03)
[2024-05-03] MEDS: LACTATED RINGER'S 1,000 ML IV SCH (00:14)
[2024-05-03] MEDS: ONDANSETRON INJ 2 MG/ML 2 ML VIAL IV PRN (00:53)
[2024-05-03] MEDS: MoRPHine SULFATE 4 MG/ML 1 ML CARP\\VIAL IV PRN (00:55)
[2024-05-03 01:14] LABS: Hep B Surface Ag with confirm Negative (Negative)
[2024-05-03 01:20] LABS: Hep C Ab Rflx HepCQuant RNA Negative (Negative)
[2024-05-03] MEDS: PIPERACILLIN/TAZOBACTAM 4.5 GM/100 ML BAG IV SCH (02:40)
[2024-05-03 06:30] LABS: Basophils # (auto) 0.03 K/uL (0.00-0.20); Basophils % (auto) 0.3 %; Hematocrit (blood only) 35.9 % (42.0-52.0); Hemoglobin 11.8 g/dl (14.0-18.0); Immature Granulocytes # (auto) 0.03 K/uL (0.01-0.20); Immature Granulocytes % (auto) 0.3 %; Lymphocytes # (auto) 2.53 K/uL (1.20-3.40); Lymphocytes % (auto) 24.5 %; Mean Corpuscular Hemoglobin 23.1 pg (25.0-34.0); Mean Corpuscular Hgb Conc 32.9 g/dL (32.0-36.0); Mean Corpuscular Volume 70.4 fL (80.0-100.0); Mean Platelet Volume 10.5 fL (9.4-12.4); Monocytes # (auto) 0.99 K/uL (0.11-0.59); Monocytes % (auto) 9.6 %; Neutrophils # (auto) 6.66 K/uL (1.40-6.50); Neutrophils % (auto) 64.3 %; Platelet Count 238 K/uL (130-400); RDW Coefficient of Variation 14.2 % (11.5-14.5); RDW Standard Deviation 35.4 fL (36.4-46.3); White Blood Count 10.34 K/ul (4.8-10.8)
[2024-05-03 06:51] LABS: RBC Morphology Unremarkable
[2024-05-03 06:57] LABS: INR 1.1 (0.9-1.1); Partial Thromboplastin Time 26 Seconds (21-31)
[2024-05-03 07:01] LABS: Albumin Globulin Ratio 1.1 (0.9-2); Albumin Level 3.7 gm/dl (3.4-5.0); Bilirubin,Total 3.1 mg/dl (0.2-1.0); Creatinine Clr Calc Pharmacy 135.3 ml/min; Globulin 3.4 gm/dl (2.5-4.0); Potassium 3.8 mmol/L (3.5-5.1); Total Protein 7.1 gm/dl (6.0-8.3)
--- NOTE | 2024-05-03 08:17 | Hospitalist Progress Note ---
Date of Service May 03, 2024 Assessment & Plan (1) Right sided abdominal pain: Plan: clinical concern for acute cholecystitis, has elevated indirect bili, but not with CBD dialation, enlarged GB but not sig wall thickening Zosyn initiated and cultures obtained MRI suggests acute cholecystitis, for OR 05/03/24 for cholecystectomy has abn urine also, antibiotics will also treat for uti poa associated N/V improved with medication (2) Beta thalassemia: Plan: hgb is mildly low, little concern for hemolysis Total bilirubin is increased from 1.9-2.9 from yesterday to today Question secondary to Gilbert's, hemolysis, hepatitis Peripheral smear with history of beta thalassemia to assess for possible hemolysis Acute hepatitis profile Admission and Anticipated Discharge Date Admission Date: May 02, 2024 Subjective pt with persistent RUQ pain, MRI suggests cholecystitis, for OR 05/03/24 Physical Exam Physical Exam: pleasant mild distress abd is soft, RUQ pain to exam, not acute abdomen Results & Data Results & Data Vital Signs (Past 12 Hours) Vital Signs Temp Pulse Pulse Pulse Resp BP BP 05/03/24 08:02 98.4 F 90 16 110/70 05/03/24 04:03 98.4 F 89 18 107/72 05/03/24 03:12 84 20 121/70 05/03/24 02:53 81 05/03/24 00:47 85 20 125/68 05/02/24 23:42 81 20 158/84 H 05/02/24 23:10 82 05/02/24 23:00 170/86 H 05/02/24 22:51 81 23 05/02/24 22:30 156/106 H 05/02/24 22:30 87 23 05/02/24 22:21 92 H 24 05/02/24 22:15 92 H 23 05/02/24 22:01 145/104 H 05/02/24 22:00 82 15 05/02/24 21:39 92 H 21 05/02/24 21:31 154/109 H 05/02/24 21:27 75 22 05/02/24 21:03 80 21 05/02/24 21:01 158/111 H 05/02/24 21:00 77 20 154/109 H 05/02/24 20:57 81 27 H 05/02/24 20:33 85 20 05/02/24 20:30 161/105 H Pulse Ox O2 Del Method 05/03/24 08:02 95 Room Air 05/03/24 04:03 95 Room Air 05/03/24 03:12 96 Room Air 05/03/24 02:53 05/03/24 00:47 96 Room Air 05/02/24 23:42 96 Room Air 05/02/24 23:10 05/02/24 23:00 05/02/24 22:51 96 05/02/24 22:30 05/02/24 22:30 96 05/02/24 22:21 95 05/02/24 22:15 96 05/02/24 22:01 05/02/24 22:00 96 05/02/24 21:39 95 05/02/24 21:31 05/02/24 21:27 97 05/02/24 21:03 97 05/02/24 21:01 05/02/24 21:00 96 05/02/24 20:57 97 05/02/24 20:33 97 05/02/24 20:30 Laboratory Results reviewed cbc reviewed chemistry PG Care Time/CCT Total # of Minutes Spent Total Time Spent with Patient: Total time spent is greater than 50% in coordination of care (as documented) at patient's floor/unit and/or counseling patient: Coding Level of Care Code 06072 SUB INP/OBS CARE 3/50MIN Diagnoses Right sided abdominal pain R10.9 Beta thalassemia D56.1
[2024-05-03] MEDS: PANTOprazole 40 MG/10 ML SYR IV SCH (08:27)
--- NOTE | 2024-05-03 10:26 | Surgery Progress Note ---
Date of Service May 03, 2024 Assessment & Plan (1) Right sided abdominal pain: Plan: WBC back in the normal range however his bilirubin continues to increase MRCP as well as HIDA scan ordered Recommendations after workup complete (2) Hyperbilirubinemia: (3) Morbid obesity with BMI of 40.0-44.9, adult: Admission and Anticipated Discharge Date Admission Date: May 02, 2024 Subjective Patient seen. Continues to have right upper quadrant pain. Denies any weight loss over the past year Physical Exam Constitutional: WD/WN, vitals as above no acute distress and not ill appearing Eyes: PERRL, conjunctivae normal, anicteric sclerae EOM intact bilaterally ENMT: external ear and nose normal, oropharynx normal Ears: no hearing impairment Neck: trachea midline, no thyromegaly Respiratory: normal respiratory effort; no respiratory distress and does not use accessory muscles Cardiovascular: Rate/Rhythm: regular rate and regular rhythm Gastrointestinal (Abdomen): Soft. Mild right upper quadrant tenderness. He is in no acute distress Skin: no rashes, warm and dry Psychiatric: Orientation: alert, oriented x 3 and cooperative Results & Data Vital Signs (Past 12 Hours) Vital Signs Temp Pulse Pulse Pulse Resp BP BP 05/03/24 08:02 36.9 C 90 16 110/70 05/03/24 04:03 36.9 C 89 18 107/72 05/03/24 03:12 84 20 121/70 05/03/24 02:53 81 05/03/24 00:47 85 20 125/68 05/02/24 23:42 81 20 158/84 H 05/02/24 23:10 82 05/02/24 23:00 170/86 H 05/02/24 22:51 81 23 05/02/24 22:30 156/106 H 05/02/24 22:30 87 23 Pulse Ox O2 Del Method 05/03/24 08:02 95 Room Air 05/03/24 04:03 95 Room Air 05/03/24 03:12 96 Room Air 05/03/24 02:53 05/03/24 00:47 96 Room Air 05/02/24 23:42 96 Room Air 05/02/24 23:10 05/02/24 23:00 05/02/24 22:51 96 05/02/24 22:30 05/02/24 22:30 96 PG Care Time/CCT Total # of Minutes Spent Total Time Spent with Patient: Total time spent is greater than 50% in coordination of care (as documented) at patient's floor/unit and/or counseling patient: Coding Level of Care Code 62532 SUB INP/OBS CARE 2/35MIN Diagnoses Right sided abdominal pain R10.9 Hyperbilirubinemia E80.6 Morbid obesity with BMI of 40.0-44.9, adult E66.01; Z68.41
--- NOTE | 2024-05-03 11:19 | Magnetic Resonance Report ---
MR MRCP HISTORY: 33 years-old Male elevated LFTs and RUQ pain acute right upper quadrant abdominal pain with nausea and vomiting COMPARISON: CT 12-24 TECHNIQUE: MRCP without IV contrast. FINDINGS: Mild right hemidiaphragmatic elevation. Motion degraded exam. Trace right pleural effusion. Unremarka ble spleen, pancreas, adrenal glands and liver. Patency of the hepatic and portal veins. Distended st one filled gallbladder with wall thickening and pericholecystic stranding/trace free fluid. A few gal lstones are noted within the gallbladder neck. Common bile duct is normal at 4 mm. No choledocholithi asis identified. Normal caliber of the pancreatic duct. No bowel obstruction or bowel wall thickening. No hydronephrosis. Mild nonspecific bilateral perineph annie stranding. No pathologically enlarged lymph nodes. Unremarkable aorta. IMPRESSION: 1. Cholelithiasis with evidence of acute cholecystitis. 2. No choledocholithiasis or biliary ductal dilation. 3. Trace right pleural effusion. ACT 112: Negative or not required by law. The above report was generated using voice recognition software. It may contain grammatical, syntax o r spelling errors. Electronically signed by: Sahil Prather M.D. 05/03/2024 11:18 AM
[2024-05-03] MEDS ORDERED: fentaNYL citrate PF 100 MCG/2 ML VIAL ONE (12:41)
[2024-05-03] MEDS ORDERED: LIDOCAINE 2% 2 ML VIAL/AMP(20MG/ML) INFIL ONE (12:41)
[2024-05-03] MEDS ORDERED: ONDANSETRON INJ 2 MG/ML 2 ML VIAL ONE (12:41)
[2024-05-03] MEDS ORDERED: MIDAZOLAM HCL 1 MG/ML 2ML VIAL ONE (12:41)
[2024-05-03] MEDS ORDERED: PROPOFOL IV EMULSION 10 MG/ML 20 ML VIAL IV ONE ×2 (12:41→12:42)
[2024-05-03] MEDS ORDERED: DEXAMETHASONE SOD INJ 4 MG/ML VIAL ONE (12:41)
--- NOTE | 2024-05-03 12:43 | Anesthesiology Consultation ---
Date of Service May 03, 2024 Assessment & Plan Chart Review Chart Review: Acceptable Risk for Surgery and Patient NOT seen in Pre Admission Testing Consults Requested none History Surgery Operation Date: 05/03/24 08:20 Proposed Procedures p Laparoscopic Cholecystectomy - Mathew Leblanc DO Height/Weight Height: 6 ft 2 in Weight: 145.6 kg Allergies Allergy/AdvReac Type Severity Reaction Status Date / Time No Known Allergies Allergy Unverified 05/01/24 21:15 Medications Home Medications Medication Instructions Recorded Confirmed Last Taken No Known Home Medications 05/03/24 05/03/24 Unknown Active Medications Generic Name Dose Route Start Last Admin Trade Name Freq PRN Reason Stop Dose Admin Pantoprazole Sodium 40 mg in 10 mls @ 5 mls/min 05/03/24 09:00 05/03/24 08:27 Protonix IV 06/02/24 08:59 5 mls/min DAILY BRAD Administration Piperacillin Sod/Tazobactam Sod 4.5 gm in 100 mls @ 25 mls/hr 05/03/24 02:00 05/03/24 11:07 Zosyn IV 05/13/24 01:59 25 mls/hr Q8H BRAD Administration Protocol Morphine Sulfate 4 mg 05/03/24 00:03 05/03/24 00:55 Morphine Sulfate 4 Mg/Ml 1 Ml Carp\Vial IV 05/17/24 00:02 4 mg Q3H PRN Administration Severe Pain (Scale 7, 8, 9,10) Ondansetron HCl 4 mg 05/03/24 00:03 05/03/24 00:53 Ondansetron Inj 2 Mg/Ml 2 Ml Vial IV 06/02/24 00:02 4 mg Q6H PRN Administration Nausea Past Medical History Medical History (Updated 05/03/24 @ 10:26 by Mathew Leblanc DO) Beta thalassemia Social History Smoking Status: Current every day smoker Do You Dip or Chew Tobacco: No Hx Alcohol Use: No Hx Substance Use: No Physical Exam Vital Signs Last Vital Signs Temp 36.9 C 05/03/24 08:02 Pulse 90 05/03/24 08:02 Resp 16 05/03/24 08:02 BP 110/70 05/03/24 08:02 Pulse Ox 95 05/03/24 08:02 O2 Del Method Room Air 05/03/24 08:02 Testing Laboratory Results 05/03/24 06:07 05/03/24 06:07 PT 12.0 Seconds (9.0-12.0) 05/03/24 06:07 INR 1.1 (0.9-1.1) 05/03/24 06:07 APTT 26 Seconds (21-31) 05/03/24 06:07 Urine Color Mobile 05/02/24 18:37 Urine Appearance Clear (Clear) 05/02/24 18:37 Urine pH 6.0 (4.5-7.5) 05/02/24 18:37 Ur Specific [place] 1.037 (1.000-1.030) H 05/02/24 18:37 Urine Protein 1+ (Negative) H 05/02/24 18:37 Urine Glucose (UA) Negative (Negative) 05/02/24 18:37 Urine Ketones 1+ (Negative) H 05/02/24 18:37 Urine Nitrite Positive (Negative) A 05/02/24 18:37 Ur Leukocyte Esterase Trace (Negative) H 05/02/24 18:37 Urine WBC (Auto) 0-5 /hpf (0-5) 05/02/24 18:37 Urine RBC (Auto) 6-10 /hpf (0-2) H 05/02/24 18:37 U Hyaline Cast (Auto) 0-2 /lpf (0-2) 05/02/24 18:37 U Epithel Cells (Auto) 0-2 /hpf (0-2) 05/02/24 18:37 Urine Bacteria (Auto) 2+ (None Seen) H 05/02/24 18:37
[2024-05-03] MEDS ORDERED: ROCURONIUM BROMIDE 10 MG/ML 5 ML VIAL IV ONE ×2 (12:46→13:31)
[2024-05-03] MEDS ORDERED: KETAMINE HCL 10MG/ML SYR ONE (12:47)
[2024-05-03] MEDS ORDERED: DexMEDEtomidine HCL IV 100 MCG/ML VIAL IV ONE (12:58)
[2024-05-03] MEDS ORDERED: SODIUM CHLORIDE 0.9% PF INJ 10 ML VIAL ONE ×3 (13:00→13:58)
[2024-05-03] MEDS ORDERED: ePHEDrine sulfate 50 MG/ML AMP IV PRN (13:09)
[2024-05-03] MEDS ORDERED: ONDANSETRON INJ 2 MG/ML 2 ML VIAL IV PRN (13:09)
[2024-05-03] MEDS ORDERED: ATROPINE SULFATE 0.1 MG/ML 10ML SYR IV PRN (13:09)
--- NOTE | 2024-05-03 13:15 | History & Physical Bridge Note ---
Date of Service May 03, 2024 History & Physical Bridge Note I have examined the patient, reviewed the History & Physical and in the interval since the performance of the History & Physical I have noted the following changes of clinical significance: MRCP c/w cholecystitis. no evidence of choledocholithiasis. rec lap zachary. discussed risks/options. questions answered. agreeable. will proceed today with lap zachary
[2024-05-03] MEDS ORDERED: SUGAMMADEX SODIUM 200 MG/2 ML VIAL IV ONE (13:44)
[2024-05-03] MEDS ORDERED: KETOROLAC 30 MG/ML VIAL ONE (13:44)
[2024-05-03] MEDS ORDERED: PHENYLEPHRINE HCL 10 MG/ML VIAL ONE (13:53)
[2024-05-03] MEDS ORDERED: VASOPRESSIN 20 UNIT/ML VIAL ONE (13:57)
[2024-05-03] MEDS: BUPIVACAINE/EPINEPHRINE 0.5% MPF 1:200,000 30 ML VIAL ONE (14:25)
--- NOTE | 2024-05-03 14:37 | Operative Report ---
PG Post Operative Report Pre & Post Diagnosis Operation Date: 05/03/24 08:20 Pre-Op Diagnosis: acute calculous cholecystitis Post-Op Diagnosis: acute calculous cholecystitis I identified the patient and participated in the time-out.: Yes Procedure Operation Date: 05/03/24 08:20 Actual Procedures p Laparoscopic Cholecystectomy(Not Applicable) - Mathew Leblanc DO Surgeon Mathew Leblanc DO Gas Line Installer Supervisor david Aguillon Estimated Blood Loss 15 Findings Consistent with Post-Op Diagnosis Specimens 1. gallbladder fluid for gram stain/culture 2. gallbladder Description of Procedure After informed consent was obtained the patient was taken to the operating room and placed in the supine position. After successful intubation the abdomen was sterilely prepped and draped in usual fashion. A periumbilical incision was made with an 11 blade scalpel and carried down through the soft tissue using electrocautery. The anterior rectus fascia was opened using electrocautery and 2 #0 Vicryl stay sutures were placed. The peritoneum was elevated with hemostats and incised under direct vision using Metzenbaum scissors. A finger sweep was performed and a 12 mm Cornejo trocar was placed. The abdomen was insufflated to 18 mmHg. The laparoscope was inserted and the abdomen was examined in 360. The gallbladder was acutely inflamed otherwise, no gross abnormalities were identified. A subxiphoid 5 mm port and 2 right upper quadrant 5 mm ports were placed under direct vision. The patient was placed in a reverse Trendelenburg position and slightly airplaned to the left. Initially the gallbladder was too inflamed and thickened to be able to grasp it. I therefore used a gallbladder needle to drain about 50 cc of bile. We sent a sample of the fluid for Gram stain culture and sensitivity. Once the gallbladder was partially decompressed it was grasped and elevated superiorly and laterally. A [place] dissector was used to take down adhesions around the neck of the gallbladder. The cystic duct was identified and skeletonized. It was clipped 3 times proximally and once distally and transected using a laparoscopic scissor. In similar fashion the cystic artery was identified and skeletonized clipped twice and divided. The gallbladder was removed from the gallbladder fossa with electrocautery. It was placed into an Endo Catch bag. Thorough irrigation was performed. At the end of the procedure there was adequate hemostasis and no evidence of any bile leaks. A final look around the abdomen showed no other abnormalities. The gallbladder and trochars were all removed and the abdomen was desufflated. The fascia of the camera port was closed using 0 Vicryl in a [id number] fashion. All the wounds were irrigated and closed using 4-0 Monocryl. Marcaine was injected around them for postoperative analgesia and skin glue used as a dressing. The patient was awaken extubated and transferred to recovery in stable condition. My physician's certified physician's assistant was present throughout the entire case... helped with prepping the patient. With exposure for trocar placement, as well as retracted the gallbladder throughout the case and also assisted with wound closure and dressing placement. I attest to the content of the Intraoperative Record and any orders documented therein. Any exceptions are noted below.
[2024-05-03] MEDS ORDERED: HYDROmorphone INJ 1 MG/ML SYRINGE ONE (14:39)
[2024-05-03] MEDS: HYDROmorphone INJ 2 MG/ML SYR/VIAL IV PRN (15:05)
--- NOTE | 2024-05-03 15:16 | Anesthesiology Progress Note ---
Date of Service May 03, 2024 Anesthesia Post Procedure Vital Signs Vital Signs: Temp Pulse Pulse Pulse Resp BP BP 05/03/24 12:50 37.2 C 88 18 143/78 H 05/03/24 08:02 36.9 C 90 16 110/70 05/03/24 04:03 36.9 C 89 18 107/72 05/03/24 03:12 84 20 121/70 05/03/24 02:53 81 05/03/24 00:47 85 20 125/68 05/02/24 23:42 81 20 158/84 H 05/02/24 23:10 82 05/02/24 23:00 170/86 H 05/02/24 22:51 81 23 05/02/24 22:30 156/106 H 05/02/24 22:30 87 23 05/02/24 22:21 92 H 24 05/02/24 22:15 92 H 23 05/02/24 22:01 145/104 H 05/02/24 22:00 82 15 05/02/24 21:39 92 H 21 05/02/24 21:31 154/109 H 05/02/24 21:27 75 22 05/02/24 21:03 80 21 05/02/24 21:01 158/111 H 05/02/24 21:00 77 20 154/109 H 05/02/24 20:57 81 27 H 05/02/24 20:33 85 20 05/02/24 20:30 161/105 H 05/02/24 19:42 82 24 05/02/24 19:30 98 H 19 05/02/24 19:30 126/93 05/02/24 19:30 126/93 05/02/24 19:21 106 H 15 05/02/24 19:15 103 H 25 H 05/02/24 19:10 100 H 05/02/24 19:01 111 H 20 05/02/24 19:00 111 H 20 125/90 05/02/24 15:47 36.8 C 111 H 12 140/89 Pulse Ox O2 Del Method 05/03/24 12:50 95 Room Air 05/03/24 08:02 95 Room Air 05/03/24 04:03 95 Room Air 05/03/24 03:12 96 Room Air 05/03/24 02:53 05/03/24 00:47 96 Room Air 05/02/24 23:42 96 Room Air 05/02/24 23:10 05/02/24 23:00 05/02/24 22:51 96 05/02/24 22:30 05/02/24 22:30 96 05/02/24 22:21 95 05/02/24 22:15 96 05/02/24 22:01 05/02/24 22:00 96 05/02/24 21:39 95 05/02/24 21:31 05/02/24 21:27 97 05/02/24 21:03 97 05/02/24 21:01 05/02/24 21:00 96 05/02/24 20:57 97 05/02/24 20:33 97 05/02/24 20:30 05/02/24 19:42 97 05/02/24 19:30 96 05/02/24 19:30 05/02/24 19:30 05/02/24 19:21 97 05/02/24 19:15 96 05/02/24 19:10 05/02/24 19:01 98 Room Air 05/02/24 19:00 98 Room Air 05/02/24 15:47 95 Room Air Pain Intensity Abdomen: Pain Intensity: 5 Transfer of Care Handoff Completed per policy Notes Mental Status: alert / awake / arousable Patient Amnestic to Procedure: Yes Nausea / Vomiting: adequately controlled Pain: adequately controlled Airway Patency, RR, SpO2: stable & adequate BP & HR: stable & adequate Hydration State: stable & adequate Anesthetic Complications: no major complications apparent and Pt Satisfied with anesthetic care
[2024-05-03] MEDS ORDERED: oxyCODONE HCL IR 5 MG TAB (IMMEDIATE RELEASE) PO PRN (16:15)
[2024-05-04 03:46] VITALS: TEMP 97.7
[2024-05-04] MEDS: oxyCODONE HCL IR 5 MG TAB (IMMEDIATE RELEASE) PO PRN (04:11)
[2024-05-04 06:57] LABS: Basophils # (auto) 0.01 K/uL (0.00-0.20); Basophils % (auto) 0.1 %; Eosinophils # (auto) 0.03 K/uL (0.00-0.50); Eosinophils % (auto) 0.3 %; Hematocrit (blood only) 32.8 % (42.0-52.0); Hemoglobin 10.6 g/dl (14.0-18.0); Immature Granulocytes # (auto) 0.05 K/uL (0.01-0.20); Immature Granulocytes % (auto) 0.4 %; Lymphocytes # (auto) 1.37 K/uL (1.20-3.40); Lymphocytes % (auto) 12.3 %; Mean Corpuscular Hemoglobin 22.7 pg (25.0-34.0); Mean Corpuscular Hgb Conc 32.3 g/dL (32.0-36.0); Mean Corpuscular Volume 70.2 fL (80.0-100.0); Mean Platelet Volume 10.2 fL (9.4-12.4); Monocytes # (auto) 0.95 K/uL (0.11-0.59); Monocytes % (auto) 8.5 %; Neutrophils # (auto) 8.73 K/uL (1.40-6.50); Neutrophils % (auto) 78.4 %; Platelet Count 253 K/uL (130-400); RDW Standard Deviation 35.2 fL (36.4-46.3); Red Blood Count 4.67 M/uL (4.70-6.10); White Blood Count 11.14 K/ul (4.8-10.8)
[2024-05-04 07:14] VITALS: RESP 17
[2024-05-04 07:18] LABS: Albumin Globulin Ratio 1.1 (0.9-2); Albumin Level 3.5 gm/dl (3.4-5.0); BUN Creatinine Ratio 10.9 (10-20); Bilirubin,Total 1.8 mg/dl (0.2-1.0); Calcium 8.6 mg/dl (8.6-10.3); Creatinine Clr Calc Pharmacy 156.8 ml/min; Globulin 3.3 gm/dl (2.5-4.0); Potassium 3.8 mmol/L (3.5-5.1); Total Protein 6.8 gm/dl (6.0-8.3)
[2024-05-04] MEDS: ACETAMINOPHEN 325 MG TAB PO PRN (07:45)
--- NOTE | 2024-05-04 09:38 | Surgery Progress Note ---
Date of Service May 04, 2024 Assessment & Plan (1) Acute cholecystitis: Plan: POD 1 Lap Anna Marie Expected post surgical discomfort VSS , wbc 11 expected post surgery T bili downtrending 1.8 (3.1) tolerating diet Pt stable for discharge from surgical standpoint He should have nurses or doctor evaluate his incisional areas daily f/u o/p with Dr. Leblanc in 2 weeks as above. doing well. ok for d/c. labs improved Admission and Anticipated Discharge Date Admission Date: May 02, 2024 Subjective pain tolerable expected post surgical discomfort no n.v, f/c Review of Systems Constitutional: no fever and no chills Respiratory: no dyspnea Cardiovascular: no chest pain Gastrointestinal: + abdominal pain; no nausea and no vomit ing Psychiatric: no confusion Physical Exam Constitutional: cooperative and comfortable; no acute distress Respiratory: normal respiratory effort; no respiratory distress Gastrointestinal (Abdomen): Inspection/Auscultation: abdomen not distended Percussion/Palpation: abdomen soft Psychiatric: Orientation: alert and oriented x 3 Results & Data Vital Signs (Past 12 Hours) Vital Signs Temp Pulse Resp BP Pulse Ox O2 Del Method 05/04/24 07:13 97.7 F 53 L 17 121/77 96 Room Air 05/04/24 03:00 97.7 F 62 18 150/81 H 96 Room Air 05/03/24 23:00 97.9 F 64 18 134/77 95 Room Air Results CBC w Diff Results: RBC 4.67 M/uL (4.70-6.10) L 05/04/24 WBC 11.14 K/ul (4.8-10.8) H 05/04/24 Hgb 10.6 g/dl (14.0-18.0) L 05/04/24 Hct 32.8 % (42.0-52.0) L 05/04/24 MCV 70.2 fL (80.0-100.0) L 05/04/24 MCH 22.7 pg (25.0-34.0) L 05/04/24 MCHC 32.3 g/dL (32.0-36.0) 05/04/24 RDW Standard Deviation 35.2 fL (36.4-46.3) L 05/04/24 RDW Coefficient of Variation 14.0 % (11.5-14.5) 05/04/24 Plt Count 253 K/uL (130-400) 05/04/24 MPV 10.2 fL (9.4-12.4) 05/04/24 Neutrophils (%) (Auto) 78.4 % 05/04/24 Lymphocytes (%) (Auto) 12.3 % 05/04/24 Monocytes # (Auto) 0.95 K/uL (0.11-0.59) H 05/04/24 Eosinophils # (Auto) 0.03 K/uL (0.00-0.50) 05/04/24 Immature Granulocyte % (Auto) 0.4 % 05/04/24 Neutrophils # (Auto) 8.73 K/uL (1.40-6.50) H 05/04/24 Lymphocytes # (Auto) 1.37 K/uL (1.20-3.40) 05/04/24 Monocytes # (Auto) 0.95 K/uL (0.11-0.59) H 05/04/24 Eosinophils # (Auto) 0.03 K/uL (0.00-0.50) 05/04/24 Basophils # (Auto) 0.01 K/uL (0.00-0.20) 05/04/24 Immature Granulocyte # (Auto) 0.05 K/uL (0.01-0.20) 4 Red Blood Cell Morphology Unremarkable 05/03/24 Microcytosis Present 05/01/24 Stomatocytes 1+ 05/01/24 Results CMP Results: Sodium 136 mmol/L (136-145) 05/04/24 Potassium 3.8 mmol/L (3.5-5.1) 05/04/24 Chloride 104 mmol/L (98-107) 05/04/24 Carbon Dioxide 26 mmol/L (21-32) 05/04/24 Anion Gap 6 (3-11) 05/04/24 BUN 11 mg/dl (6-23) 05/04/24 Creatinine 1.01 mg/dl (0.6-1.4) 05/04/24 eGFR 100.08 05/04/24 BUN/Creatinine Ratio 10.9 (10-20) 05/04/24 Glucose 109 mg/dl (70-99(Fasting)) H 05/04/24 Calcium 8.6 mg/dl (8.6-10.3) 05/04/24 Total Bilirubin 1.8 mg/dl (0.2-1.0) H 05/04/24 Direct Bilirubin 0.5 mg/dl (0-0.2) H 05/02/24 AST 61 U/L (13-39) H 05/04/24 ALT 103 U/L (7-52) H 05/04/24 Alkaline Phosphatase 100 U/L (34-104) 05/04/24 Total Protein 6.8 gm/dl (6.0-8.3) 05/04/24 Albumin 3.5 gm/dl (3.4-5.0) 05/04/24 Globulin 3.3 gm/dl (2.5-4.0) 05/04/24 Albumin/Globulin Ratio 1.1 (0.9-2) 05/04/24 PG Care Time/CCT Total # of Minutes Spent Total Time Spent with Patient: Total time spent is greater than 50% in coordination of care (as documented) at patient's floor/unit and/or counseling patient: Coding Level of Care Code 50511 Post Operative Follow-Up Diagnoses Acute cholecystitis K81.0
[2024-05-04 14:47] VITALS: BP 133/84; PULSE 66; O2SAT 97
--- NOTE | 2024-05-04 16:10 | Discharge Summary ---
Discharge Summary Date of Service May 04, 2024 Principal Dx & Hospital Course #1 = Principal Diagnosis (1) Right sided abdominal pain: clinical concern for acute cholecystitis, has elevated indirect bili, but not with CBD dialation, enlarged GB but not sig wall thickening Zosyn initiated and cultures obtained MRI suggests acute cholecystitis, for OR 05/03/24 for cholecystectomy did well post op, surgery cleared for dc after tolerating diet surgery did not recommend home antibiotics (2) Beta thalassemia: hgb is mildly low, little concern for hemolysis Total bilirubin is increased from 1.9-2.9 from yesterday to today Question secondary to Gilbert's, hemolysis, hepatitis Acute hepatitis profile hep b s ag and hep c negative, hep a and core ab pending at dc Notes For Next Care Provider surgical follow up 2 weeks, watch or wounds for infection Admission HPI Per Admitting Provider The patient is a 33-year-old male resident of [place], with past medical history significant for beta thalassemia, who presents to the emergency department with symptoms as noted above. He is referred for evaluation for admission regarding acute cholecystitis, urinary tract infection, hyperbilirubinemia and symptoms of nausea, vomiting and abdominal pain. Discharge Exam awake and alert, tolerating diet cardiac is regular lungs clear abd soft mild tender, wounds are with dermabond and cdi Discharge Plan Discharge Items [facility]position[facility] Reason For Visit: UTI, ABNL GALLBLADDER US, HYPERBILIRUBINEMIA Discharge Diagnosis: laparoscopic cholecystectomy Condition on Discharge: Good Activity: As commented below Lifting: No more than 10 pounds Bathing Comment: you can shower 05/04/24. No soaking in baths Exercise/Sports: Wait until after follow-up appointment Non-emergency contact: Surgeon Call non-emergency contact if: you have any medication questions, you have a fever, your temperature is above 101.5, your wound has increased redness, your wound has increased drainage and your wound pain has increased Follow-up/Referrals: Mathew Leblanc, [Surgeon] - (call office for a follow up in 2 weeks ) Sienna CHRISTIAN [Primary Care Provider] - Diet: Heart Healthy Addtl Attending Provider Instructions: You have surgical glue called dermabond on your surgical site incisions. You may shower with this on. This will tend to come off within a couple of weeks. Do not pick at it. You may take Tylenol #3 if your facility provides it for pain. Otherwise you may take Tylenol or Ibuprofen. Do not exceed the daily limit of acetaminophen within a 24 hour time period. Pending Studies at Discharge: Yes Studies:: surgical pathology Stand-Alone Forms: My [facility] Skilled Items Patient informed of condition?: Yes Discharge Level of Care: Other Communicable Disease: No Discharge Prognosis: Stable Lines: None Urinary Catheter: No Medications and DC Order Prescriptions: No Action No Known Home Medications Discharge Orders: Discharge Order (Routine); Ordered 05/04/24 Ordered By: Maykel Mann Admission Data Admit Date/Time: 05/02/24 23:48 Attending Provider: Maykel Mann Admit Provider: Hesham Jay Primary Care Provider: Sienna CHRISTIAN Other Providers: Hesham Jay Other Interventions: Discharge Summary Assessment (RN) Last Done: 05/04/24 14:56 Hospital Stay Data Consultations 05/02/24 23:16 ED Decision to Admit Stat Procedures Performed Operation Date: 05/03/24 08:20 Actual Procedures p Laparoscopic Cholecystectomy(Not Applicable) - Mathew Leblanc, Diagnostic Imagining Performed 05/02/24 19:12 US gallbladder Stat 05/03/24 07:17 MR MRCP Urgent Pending Results Patient Have Any Pending Studies at Discharge: Yes Discharge Instructions Given to Patient (Per Discharging Provider) You have surgical glue called dermabond on your surgical site incisions. You may shower with this on. This will tend to come off within a couple of weeks. Do not pick at it. You may take Tylenol #3 if your facility provides it for pain. Otherwise you may take Tylenol or Ibuprofen. Do not exceed the daily limit of acetaminophen within a 24 hour time period. Total Time Total Time Spent Total Time Spent (In Minutes): It required greater than 30 minutes to prepare this patient for discharge. Coding Level of Care Code 23770 INP/OBS DISCH >30 MIN Diagnoses Right sided abdominal pain R10.9 Beta thalassemia D56.1
[2024-05-05 14:02] LABS: Hepatitis A Antibody IgM NON-REACTIVE (NON-REACTIVE); Hepatitis B Core Antibody IgM NON-REACTIVE (NON-REACTIVE)
== END 2024-05-04 15:23 | DRG 418 ==
LOC: ED 15:16 → EDINP 23:48 → SUATTDRO 23:48 → 3W 05-03 00:03